=== PATIENT | male | born 1965 | race Caucasian/White ===

== ENCOUNTER 2023-03-07 07:20 | Day surgery (SDC) | payer OTHER ==
[~2023-03-07] VITALS: Ht 167.6 cm; Wt 74.8 kg
[2023-03-07] MEDS ORDERED: LIDOCAINE MPF 1% 10 ML ONE (07:39)
[2023-03-07] MEDS ORDERED: ACETAMINOPHEN 325 MG TAB PO PRN (09:05)
[2023-03-07] MEDS ORDERED: ACETAMINOPHEN EXTRA STRENGTH 500 MG TAB ONE (09:07)
[2023-03-07] MEDS ORDERED: LIDOCAINE 2% 1000 MG/50 ML VIAL INJ ONE (10:40)
== END 2023-03-07 09:47 | disposition home or self-care (01) ==
LOC: MDS 07:20 → MMU 07:21 → MDS 09:47
PROVIDERS: ATTEND Internal Medicine Gastroenterology
DX: K76.0 Fatty (change of) liver, not elsewhere classified (principal); E78.00 Pure hypercholesterolemia, unspecified; E66.9 Obesity, unspecified; E11.9 Type 2 diabetes mellitus without complications; F17.210 Nicotine dependence, cigarettes, uncomplicated
CPT/HCPCS: 47000; 76942; J2001; Q0092